=== PATIENT | male | born 1955 | race Caucasian/White ===

== ENCOUNTER → 2017-10-08 | Outpatient (CLI) | payer BC ==
--- NOTE | 2017-10-08 14:12 | DIAGNOSTIC IMAGING REPORT ---
MRI OF THE LUMBAR SPINE WITHOUT CONTRAST CLINICAL HISTORY: Low back pain. Left leg pain. COMPARISON STUDY: Lumbar spine MRI July 23, 2014. TECHNIQUE: Utilizing a 1.5 Karen magnet and dedicated coil, multiplanar, multiecho imaging of the lumbar spine was performed without IV contrast. FINDINGS: For purposes of numbering on this exam, the L5-S1 disc space is assigned to axial image 27 of 30. The patient is status post L3-L4 discectomy with interbody spacer placement. There is a posterior decompression with bilateral pedicle screws at the L3 and L4 levels. The postoperative appearance is unchanged since MRI July 23, 2014. Slight anterolisthesis of L4 and L5 has developed. There is no intracanalicular mass or fluid collection. Conus terminates at the mid L1 level. There is no suspicious marrow replacement or marrow edema. Paravertebral soft tissues are unremarkable. L1-2: The central canal and neural foramen are patent. L2-3: There is facet arthrosis and ligamentous hypertrophy. The central canal, lateral recesses and neural foramen are patent. L3-4: Postoperative findings are noted. The central canal and lateral recesses are patent as is the left neural foramen. There is mild narrowing of the right neural foramen. L4-5: There is facet arthrosis with ligamentous hypertrophy. There is a disc bulge with a superimposed left foraminal/far left lateral disc protrusion which has increased in size since exam of July 23, 2014. There is mass effect upon the exiting left L4 nerve root. This displaces the nerve root. L5-S1: A central annular tear is noted with small central disc protrusion. The central canal and neural foramen are patent. IMPRESSION: 1. Disc bulge with superimposed left foraminal/far left lateral disc protrusion at L4-L5 which has mass effect upon the exiting left L4 nerve root and has increased in size since exam July 23, 2014. This could be correlated with left L4 radiculopathy. 2. Status post L3-L4 discectomy and bilateral pedicle screw fusion. 3. No significant central canal stenosis. 4. Annular tear with small central disc protrusion at L5-S1. Electronically signed by: Fredy Lira M.D. 10/08/2017 2:11 PM Dictated Date/Time: 10/08/2017 1:46 PM
== END | disposition home or self-care (01) ==
LOC: C.MRIBC 12:54
PROVIDERS: ATTEND Orthopaedic Surgery Sports Medicine
DX: M54.5 Low back pain (principal); M79.605 Pain in left leg

== ENCOUNTER 2019-09-20 11:06 | Observation (INO) ==
--- OUTSIDE RECORDS SUMMARY | 2019-09-20 11:08 | External Medical Summary | Continuity of Care Document ---
:1955 Author Name Don Solorio, Provider Address Unavailable Unavailable , Care Team Providers Name Role Phone CecilyG Osmin, Provider Unavailable [email or web address] GINNY Solorio, T Unavailable Unavailable Unavailable Unavailable Unavailable Problems Shortness of breath (786.05) (R06.02) Cough (786.2) (R05) Laryngopharyngeal reflux (478.79) (K21.9) HOCM (hypertrophic obstructive cardiomyopathy) (425.11) (I42 .1) Allergies and Adverse Reactions No Known Drug Allergies (Allergy) Medications Clarithromycin ER 500 MG Oral Tablet Ext ended Release 24 Hour; TAKE TWO TABLETS BY MOUTH EVERY DAY FOR 14 DAYS Osmin Fish Start: 26-Oct-2014 Quantity: 28 Refills: 2 Fluticasone Propionate 50 MCG/ACT Nasal Suspension; USE 2 SPRAYS IN EACH NOSTRIL ONCE DAILY Start: 23-Jul-2014 Quantity: 1 16 GM Bottle Refills: 1 Omeprazole 40 MG Oral Capsule Delayed Release; TAKE 1 CAPSULE TWICE DAILY. Osmin Fish Start: 17-Aug-2014 Quantity: 60 Refills: 3 Lipitor 20 MG Oral Tablet; TAKE 1 TABLET DAILY. Quantity: 90 Refills: 3 HYDROcodone-Homatropine 5-1.5 MG/5ML Ora l Syrup; Take 1 teaspoonful every 6 hours as needed Start: 23-Jul-2014 Refills: 0 Procedures Procedures not documented Immunizations Influenza On: 10-Jun-2015 Lot #: [id number], Influenza On: 16-May-2016 11:07 Lot #: [id number], [employer] Family History Mother No pertinent family history (V49.89) (Z78.9) Status: Active Social History - Smoking Status Current some day smoker Plan of Treatment Planned Observations Planned Goals not documented Results No Known Results Results not documented Encounters Appointment; [facility], Nursing Station 24-May-2018 9:00 Encounter Diagnosis: Problem not documented Appointment; [facility], Nursing Station 22-May-2018 9:15 Encounter Diagnosis: Problem not documented
--- OUTSIDE RECORDS SUMMARY | 2019-09-20 11:09 | External Medical Summary | Continuity of Care Document ---
:1955 Author Name Don Solorio, Provider Address Unavailable Unavailable , Care Team Providers Name Role Phone NonMCELESTINAG Osmin, Provider Unavailable [email or web address] GINNY Solorio, T Unavailable Unavailable Unavailable Unavailable Unavailable Problems Shortness of breath (786.05) (R06.02) Cough (786.2) (R05) Laryngopharyngeal reflux (478.79) (K21.9) HOCM (hypertrophic obstructive cardiomyopathy) (425.11) (I42 .1) Allergies and Adverse Reactions No Known Drug Allergies (Allergy) Medications Lipitor 20 MG Oral Tablet; TAKE 1 TABLET DAILY. Quantity: 90 Refills: 3 Fluticasone Propionate 50 MCG/ACT Nasal Suspension; USE 2 SPRAYS IN EACH NOSTRIL ONCE DAILY Start: 23-Jul-2014 Quantity: 1 16 GM Bottle Refills: 1 HYDROcodone-Homatropine 5-1.5 MG/5ML Ora l Syrup; Take 1 teaspoonful every 6 hours as needed Start: 23-Jul-2014 Refills: 0 Omeprazole 40 MG Oral Capsule Delayed Release; TAKE 1 CAPSULE TWICE DAILY. Osmin Fish Start: 17-Aug-2014 Quantity: 60 Refills: 3 Clarithromycin ER 500 MG Oral Tablet Ext ended Release 24 Hour; TAKE TWO TABLETS BY MOUTH EVERY DAY FOR 14 DAYS Osmin Fish Start: 26-Oct-2014 Quantity: 28 Refills: 2 Procedures Procedures not documented Immunizations Influenza On: 10-Jun-2015 Lot #: [id number], Influenza On: 16-May-2016 11:07 Lot #: [id number], [employer] Family History Mother No pertinent family history (V49.89) (Z78.9) Status: Active Social History - Smoking Status Current some day smoker Plan of Treatment Planned Observations Planned Goals not documented Results No Known Results Results not documented Encounters Appointment; [facility], Nursing Station 24-May-2018 9:00 Encounter Diagnosis: Problem not documented Appointment; [facility], Nursing Station 22-May-2018 9:15 Encounter Diagnosis: Problem not documented
[2019-09-20] MEDS ORDERED: ASPIRIN CHEW 324 MG PO STA (11:40)
[2019-09-20] MEDS ORDERED: NITROGLYCERIN SL 0.4 MG/TAB TAB SL PRN (11:40)
[2019-09-20] MEDS ORDERED: ONDANSETRON INJ 2 MG/ML 2 ML VIAL IV STA (11:40)
[2019-09-20] MEDS ORDERED: ACETAMINOPHEN 325 MG TAB PO STA (11:40)
[2019-09-20 11:55] LABS: Basophils # (auto) 0.01 K/uL (0-0.2); Basophils % (auto) 0.3 %; Eosinophils # (auto) 0.08 K/uL (0-0.5); Eosinophils % (auto) 2.1 %; Hematocrit (blood only) 42.1 % (42-52); Hemoglobin 14.5 g/dL (14.0-18.0); Immature Granulocytes # (auto) 0.01 K/uL (0.00-0.02); Immature Granulocytes % (auto) 0.3 %; Lymphocytes # (auto) 1.59 K/uL (1.2-3.4); Lymphocytes % (auto) 42.5 %; Mean Corpuscular Hemoglobin 32.9 pg (25-34); Mean Corpuscular Hgb Conc 34.4 g/dL (32-36); Mean Corpuscular Volume 95.5 fL (80-100); Mean Platelet Volume 10.7 fL (7.4-10.4); Monocytes # (auto) 0.44 K/uL (0.11-0.59); Monocytes % (auto) 11.8 %; Neutrophils # (auto) 1.61 K/uL (1.4-6.5); Platelet Count 227 K/uL (130-400); RDW Coefficient of Variation 13.2 % (11.5-14.5); RDW Standard Deviation 46.2 fL (36.4-46.3); Red Blood Count 4.41 M/uL (4.7-6.1); White Blood Count 3.74 K/uL (4.8-10.8)
[2019-09-20 12:02] LABS: Albumin Level 3.8 gm/dl (3.4-5.0); BUN Creatinine Ratio 15.6 (10-20); Calcium 9.2 mg/dl (8.5-10.1); Creatinine Clr Calc Pharmacy 129.2 ml/min; Est GFR (African American) 109.8; Est GFR (Non-African American) 94.8; Potassium 4.1 mmol/L (3.5-5.1)
[2019-09-20 12:07] LABS: INR 1.1 (0.9-1.1); Partial Thromboplastin Ratio 0.9; Partial Thromboplastin Time 25.4 Seconds (21.0-31.0)
[2019-09-20 12:13] LABS: Albumin Globulin Ratio 1.1 (0.9-2); Bilirubin,Total 0.7 mg/dl (0.2-1); Globulin 3.4 gm/dl (2.5-4.0); Total Protein 7.2 gm/dl (6.4-8.2); Troponin I 0.385 ng/ml (0-0.045)
[2019-09-20] MEDS ORDERED: Heparin IV Standard *NO* Bolus IV ONE (12:18)
--- NOTE | 2019-09-20 12:23 | XRay Report ---
XR chest 1V portable HISTORY: Atypical Chest Pain COMPARISON: Chest 08/17/2014. FINDINGS: Stable calcified granuloma within the left lung base. Otherwise, lungs are clear. Cervical spinal fusion hardware is noted. No pleural effusions. No pneumothorax. The cardiac silhouette is bor derline enlarged. IMPRESSION: Borderline enlargement of the cardiac silhouette. Otherwise, no acute process within the chest. ACT 112: Negative or not required by law. Electronically signed by: Everette Marroquin M.D. 09/20/2019 12:22 PM
[2019-09-20] MEDS ORDERED: SODIUM CHLORIDE 0.9% 1000ML 1,000 ML IV SCH (12:30)
[2019-09-20] MEDS ORDERED: HEPARIN SODIUM/DEXTROSE 25,000 UNITS/500 ML BAG IV SCH (12:30)
--- NOTE | 2019-09-20 13:34 | History & Physical Report ---
Date of Service September 20, 2019 Assessment & Plan (1) Exertional dyspnea: 63yo C male with history of hypertrophic cardiomyopathy presenting with 10 days of exertional lightheadedness and dyspnea. No CP. No symptoms occurring at rest. Presently afebrile, hemodynamically stable with a resting bradycardia. Troponin x 1 elevated at 0.385, EKG with no evidence of acute ischemia. He reports having a cardiac catheterization performed in [place] last year - states he had 40% stenosis of LAD. He reports this is unchanged from a catheterization performed 13 years prior. -Observation to medical floor with telemetry -Repeat troponin x 1 in 8 hours. If level is the same or decreased will discharge the patient home, if level is increased he should stay for additional ischemic workup -Records from outside Cardiology requested. -Continue ASA 81mg po daily -Continue Atorvastatin 80mg po daily + Coq10 -Continue Lisinopril 5mg po daily -No Beta evelyne due to resting bradycardia -Nitroglycerine PRN chest pain -Zofran as needed for nausea -Cardiology consultation appreciated Present on Admission?: Yes (2) Elevated troponin: Troponin = 0.385. Uncertain baseline values -Repeat in 8 hours as above -Cardiology consultation appreciated Present on Admission?: Yes (3) Cardiomyopathy: Patient with history of hypertrophic cardiomyopathy. He receives his cardiac care in [place] at the [facility]. -Records requested -Consider repeat echocardiogram here F/E/N - Heplock. Electrolytes WNL, check Mg level x 1, NPO for now, hold vitamins/supplements for now Ppx - Low risk for DVT Code - Full per discussion with patient Dispo -Observation to medical floor with telemetry Present on Admission?: Yes History of Present Illness Chief Complaint: SR Primary Care Provider: Luther HUERTAS Patient is a pleasant 63yo C male with history of hypertrophic cardiomyopathy, follows predominantly with Cardiology at the [facility] in [place], [place]. He presents today with his complaining of 10 days of indigestion and eructation as well as lightheadedness and dyspnea with exertion, occasional palpitations. He denies chest pain or pressure, SOB, edema, orthopnea. He was ill with a URI a few months ago and continues to have a dry cough with some post nasal drip. Otherwise, no complaints. ER Course: ASA 324mg, Tylenol 650mg, Zofran 4mgIV, Nitro 0.4mg Allergies Allergy/AdvReac Type Severity Reaction Status Date / Time No Known Allergies Allergy Unverified 09/20/19 13:43 Home Medications Home Medications Medication Instructions Recorded Confirmed Type aspirin 81 mg PO QAM 09/20/19 09/20/19 History atorvastatin 80 mg PO HS 09/20/19 09/20/19 History cholecalciferol (vitamin D3) 2,000 unit PO QAM 09/20/19 09/20/19 History [Vitamin D3] coenzyme Q10 [Co Q-10] 100 mg PO QAM 09/20/19 09/20/19 History lisinopril 5 mg PO HS 09/20/19 09/20/19 History multivitamin 1 tab PO QAM 09/20/19 09/20/19 History omega 2-pdb-vyb-fish oil [Fish Oil] 1 cap PO QAM 09/20/19 09/20/19 History sildenafil 100 mg PO DAILY PRN 09/20/19 09/20/19 History turmeric 400 mg PO QAM 09/20/19 09/20/19 History Past Med/Surg History Medical History (Updated 09/20/19 @ 13:58 by Radha Alvarado DO) Cardiomyopathy Surgical History (Updated 09/20/19 @ 13:53 by Radha Alvarado DO) History of cervical spinal surgery History of lumbosacral spine surgery S/P cardiac catheterization Family History Mother Atrial fibrillation Brother Atrial fibrillation Father Myocardial infarction Social History (Updated 09/20/19 @ 13:53 by Radha Alvarado DO) Preferred Language: Norwegian marital status: current occupational status: employed Feels Safe at Home: Yes Smoking Status: Never smoker Hx Alcohol Use: Yes Alcohol Intake Frequency: Holidays/Special Occasions Hx Substance Use: No Review of Systems Review of Systems: All systems reviewed & are unremarkable except as noted in HPI & below Physical Exam Physical Exam: General: patient resting comfortably, NAD, non-toxic in appearance, AA&O x 4 Skin: warm, dry, intact, no rashes or lesions HEENT: NC/AT, PERRL, EOMI, anicteric sclera, conjunctiva without injection, external ear normal to inspection and nontender, nares patent, moist mucus membranes, dentition intact, no oropharyngeal lesions, neck supple, trachea midline, no LAD, no thyromegaly, no JVD Heart: +S1/S2, regular, bradycardic, no m/r/g Lungs: equal air entry bilaterally, no rales/rhonchi/wheezes Abd: +BS, soft, NT/ND, no masses/organomegaly/ascites Ext: warm, 2+ pulses in UE/LE bilaterally, no clubbing/cyanosis or edema Neuro: nonfocal, patient AA&O x 4, speech intact, no facial droop, moving all extremities on command with equal strength 5/5 Results & Data Vital Signs (Past 12 Hours) Vital Signs Temp Pulse Resp BP Pulse Ox 09/20/19 12:05 48 L 16 119/67 95 09/20/19 12:00 62 15 107/75 94 09/20/19 11:55 61 19 117/74 92 09/20/19 11:52 55 L 13 139/81 96 09/20/19 11:43 97 09/20/19 11:30 50 L 19 136/81 96 09/20/19 11:27 52 L 19 146/85 H 96 09/20/19 11:11 56 L 20 177/91 H 97 09/20/19 11:07 36.4 C L 61 20 192/87 H 99 Laboratory Results Lab Results 09/20/19 09/20/19 09/20/19 Range/Units 11:18 11:18 11:18 WBC 3.74 L (4.8-10.8) K/uL RBC 4.41 L (4.7-6.1) M/uL Hgb 14.5 (14.0-18.0) g/dL Hct 42.1 (42-52) % MCV 95.5 (80-100) fL MCH 32.9 (25-34) pg MCHC 34.4 (32-36) g/dL RDW Std Deviation 46.2 (36.4-46.3) fL RDW Coeff of Mateus 13.2 (11.5-14.5) % Plt Count 227 (130-400) K/uL MPV 10.7 H (7.4-10.4) fL Immature Gran % (Auto) 0.3 % Neut % (Auto) 43.0 % Lymph % (Auto) 42.5 % [place] % (Auto) 11.8 % Eos % (Auto) 2.1 % Baso % (Auto) 0.3 % Immature Gran # (Auto) 0.01 (0.00-0.02) K/uL Neut # (Auto) 1.61 (1.4-6.5) K/uL Lymph # (Auto) 1.59 (1.2-3.4) K/uL [place] # (Auto) 0.44 (0.11-0.59) K/uL Eos # (Auto) 0.08 (0-0.5) K/uL Baso # (Auto) 0.01 (0-0.2) K/uL PT 11.0 (9.0-12.0) Seconds INR 1.1 (0.9-1.1) APTT 25.4 (21.0-31.0) Seconds PTT Ratio 0.9 Sodium 139 (136-145) mmol/L Potassium 4.1 (3.5-5.1) mmol/L Chloride 107 (98-107) mmol/L Carbon Dioxide 26 (21-32) mmol/L Anion Gap 6.0 (3-11) BUN 13 (7-18) mg/dl Creatinine 0.82 (0.6-1.4) mg/dl Est Cr Clr Drug Dosing 129.2 ml/min Est GFR ( Amer) 109.8 Est GFR (Non-Af Amer) 94.8 BUN/Creatinine Ratio 15.6 (10-20) Glucose 104 H (70-99) mg/dl Calcium 9.2 (8.5-10.1) mg/dl Total Bilirubin 0.7 (0.2-1) mg/dl AST 31 (15-37) U/L ALT 42 (12-78) U/L Alkaline Phosphatase 50 (45-117) U/L Troponin I 0.385 H* (0-0.045) ng/ml Total Protein 7.2 (6.4-8.2) gm/dl Albumin 3.8 (3.4-5.0) gm/dl Globulin 3.4 (2.5-4.0) gm/dl Albumin/Globulin Ratio 1.1 (0.9-2) Lipase 123 (73-393) U/L Diagnostic Findings XR chest 1V portable HISTORY: Atypical Chest Pain COMPARISON: Chest 08/17/2014. FINDINGS: Stable calcified granuloma within the left lung base. Otherwise, lungs are clear. Cervical spinal fusion hardware is noted. No pleural effusions. No pneumothorax. The cardiac silhouette is borderline enlarged. IMPRESSION: Borderline enlargement of the cardiac silhouette. Otherwise, no acute process within the chest. ACT 112: Negative or not required by law. Electronically signed by: Everette Marroquin M.D. 09/20/2019 12:22 PM Dictated: 09/20/19 1220 Transcribed: 09/20/19 1220 ECG Additional Comments: The study shows sinus bradycardia at 57bpm, GU=252, BRX=687, SCf=710, LVH with repolarization abnormalities, no acute ischemic changes Code Status & VTE Plan Code Status FULL PG Care Time/CCT Total # of Minutes Spent Total Time Spent with Patient: Total time spent is greater than 50% in coordination of care (as documented) at patient's floor/unit and/or counseling patient: Coding Level of Care Code 28242 OBS Care - Level 2 Diagnoses Exertional dyspnea R06.09 Elevated troponin R79.89 Cardiomyopathy I42.8 Cardiomyopathy type: other (1) Cardiomyopathy Cardiomyopathy type: other Qualified Code(s): I42.8 - Other cardiomyopathies
--- NOTE | 2019-09-20 15:48 | Emergency Department Note ---
Entered by Blanca Lerma acting as a scribe for History of Present Illness General Chief complaint: Illness Stated complaint: ILLNESS Time Seen by Provider: 09/20/19 11:20 Source: patient and family () Mode of arrival: ambulatory Limitations: no limitations History of Present Illness Provider complaint: Shortness of breath Onset (ago): day(s) 10 Location: chest Pain Consistency: + other (worsening) Maximum Pain Intensity: 5 Quality: + other (shortness of breath) Exacerbated By: + other (exertion) Associated symptoms: + cough, + nausea/vomiting and + other (Additional symptoms: indigestion, lightheadedness. Denies: leg swelling, urinary symptoms, abnormal bowel movements); no chest pain, no diaphoresis and no loss of appetite Treatments prior to arrival: none The patient is a 63 year old white male w/ PMHx of GERD, CAD, and hypertrophic cardiomyopathy who presents to the ED w/ CC of worsening shortness of breath beginning 10 days ago. The patient reports that his shortness of breath worsens with exertion and has been accompanied by indigestion. He states that he feels like he has a "bubble" in his chest that causes him to become lightheaded and nauseous. He adds that he has had a cough since , but he denies any chest pain, leg swelling, loss of appetite, urinary symptoms, abnormal bowel movements, and diaphoresis. He also recalls no recent surgeries and travel. The patient reports that he has had [address] [facility] in [place] but has no history of DVTs and PEs. He mentions that his father had a heart attack before the age of 65 and that his mother and brother have histories of atrial fibrillation. Home Medications Home Medications Medication Instructions Recorded Confirmed Type aspirin 81 mg PO [facility] 09/20/19 09/20/19 History atorvastatin 80 mg PO 09/20/19 09/20/19 History cholecalciferol (vitamin D3) 2,000 unit PO [facility] 09/20/19 09/20/19 History [Vitamin D3] coenzyme Q10 [Co Q-10] 100 mg PO [facility] 09/20/19 09/20/19 History lisinopril 5 mg PO 09/20/19 09/20/19 History multivitamin 1 tab PO [facility] 09/20/19 09/20/19 History omega 3-her-api-fish oil [Fish Oil] 1 cap PO QAM 09/20/19 09/20/19 History sildenafil 100 mg PO DAILY PRN 09/20/19 09/20/19 History turmeric 400 mg PO QAM 09/20/19 09/20/19 History Allergies Allergy/AdvReac Type Severity Reaction Status Date / Time No Known Allergies Allergy Unverified 09/20/19 13:43 Past Med/Surg History Medical History CAD (coronary artery disease) Hypertrophic cardiomyopathy Systolic anterior movement of mitral valve Surgical History (Updated 09/20/19 @ 13:53 by Radha Alvarado DO) History of cervical spinal surgery History of lumbosacral spine surgery S/P cardiac catheterization Family History Mother Atrial fibrillation Brother Atrial fibrillation Father Myocardial infarction Social History (Updated 09/20/19 @ 13:53 by Radha Alvarado DO) Preferred Language: Niuean Communication Ability: Effective Beliefs That Will Affect Care: None marital status: Current Living Situation: Spouse current occupational status: employed Feels Safe at Home: Yes Smoking Status: Current some day smoker Tobacco Type: cigars ; Hx Alcohol Use: Yes Alcohol type: beer and wine Alcohol Intake Frequency: Holidays/Special Occasions Hx Substance Use: No Review of Systems See HPI for pertinent positives & negatives. and A total of 10 systems reviewed and were otherwise negative Physical Exam Vital Signs Vital Signs - 24 hr 09/20/19 11:07 09/20/19 11:11 09/20/19 11:27 Temperature 36.4 C L Temperature Source Oral Pulse Rate 61 56 L 52 L Pulse Rate from SpO2 Sensor 58 L 53 L Respiratory Rate 20 20 19 Respiratory Effort / Characteristics Non-Labored Spontaneous Respiratory Depth Normal Respiratory Pattern Regular Blood Pressure 192/87 H 177/91 H 146/85 H Blood Pressure Mean 122 119 98 Pulse Oximetry 99 97 96 Oxygen Delivery Method Room Air Sepsis Recent Fever Within 48 Hours No Sepsis Action Taken by Nursing No Action Required 09/20/19 11:30 09/20/19 11:43 09/20/19 11:52 Temperature Temperature Source Pulse Rate 50 L 55 L Pulse Rate from SpO2 Sensor 52 L 54 L Respiratory Rate 19 13 Respiratory Effort / Characteristics Respiratory Depth Respiratory Pattern Blood Pressure 136/81 139/81 Blood Pressure Mean 97 98 Pulse Oximetry 96 97 96 Oxygen Delivery Method Room Air Sepsis Recent Fever Within 48 Hours Sepsis Action Taken by Nursing 09/20/19 11:55 09/20/19 12:00 09/20/19 12:05 Temperature Temperature Source Pulse Rate 61 62 48 L Pulse Rate from SpO2 Sensor 61 61 51 L Respiratory Rate 19 15 16 Respiratory Effort / Characteristics Respiratory Depth Respiratory Pattern Blood Pressure 117/74 107/75 119/67 Blood Pressure Mean 81 85 77 Pulse Oximetry 92 94 95 Oxygen Delivery Method Sepsis Recent Fever Within 48 Hours Sepsis Action Taken by Nursing 09/20/19 12:07 09/20/19 12:31 09/20/19 13:01 Temperature Temperature Source Pulse Rate 57 L 53 L 45 L Pulse Rate from SpO2 Sensor 57 L 52 L 45 L Respiratory Rate 13 26 H 17 Respiratory Effort / Characteristics Respiratory Depth Respiratory Pattern Blood Pressure 116/72 139/67 124/74 Blood Pressure Mean 77 79 87 Pulse Oximetry 93 97 97 Oxygen Delivery Method Sepsis Recent Fever Within 48 Hours Sepsis Action Taken by Nursing GENERAL: Well appearing, well nourished, NAD, non-toxic, wearing glasses. EYE EXAM: Normal conjunctiva. PERRL, no anisocoria and EOM's grossly intact w/o pain. OROPHARYNX: Moist mucous membranes. Grossly normal dentition. NECK: Supple, no nuchal rigidity, no adenopathy, non-tender. No signs of meningismus. LUNGS: Clear to auscultation. Normal chest wall mechanics. HEART: NSR, no MRG. CHEST: No reproducible chest wall pain. ABDOMEN: Abdomen soft, non-tender, normo-active bowel sounds, no masses, no rebound or guarding. BACK: No CVA TTP. SKIN: No rashes and no bruising. UPPER EXTREMITIES: Upper extremities are grossly normal. LOWER EXTREMITIES: No pitting edema. No calf pain. Negative Phani's sign. NEURO EXAM: A&O x3, cranial nerves II-XII grossly intact, normal speech, moves all 4 extremities on command w/o issue. Course Course 1134: The patient was evaluated in room A10, and a complete history and physical examination were performed. 1136: Orders were placed. The patient was placed on a personnel monitor at this time. 1216: I reviewed the patient's case with Dr. Chowdhury - Cardiology, [facility]. 1225: I checked on the patient. The patient stated that he does not want to be admitted, so we talked about the risks and benefits of discharge. 1251: I reevaluated the patient and updated him and his on his results. 1301: I spoke to Dr. Chowdhury again and he will come to evaluate the patient. I also reviewed the patient's case with [facility]. Alvarado will admit the patient for observation and further management. 1353: The patient refused the heparin at this time. 1511: I discussed the patient's case with Dr. Chowdhury after he evaluated the patient at the bedside. Consultations Consultation #1: I reviewed the patient's case with Dr. Chowdhury - Cardiology, [facility]. Time: 12:16 Consultation #2: I spoke to Dr. Chowdhury again and he will come to evaluate the patient. I also reviewed the patient's case with Dr. Alvarado - [facility]. Dr. Alvarado will admit the patient for observation and further management. Time: 13:01 Time: 15:11 Additional Consultation(s): I discussed the patient's case with Dr. Chowdhury after he evaluated the patient at the bedside. Administered Medications Discontinued Medications Acetaminophen (Tylenol) 650 mg PO NOW STA Stop: 09/20/19 11:41 Last Admin: 09/20/19 11:49 Dose: 650 mg Documented by: [id number] Aspirin (Aspirin) 324 mg PO NOW STA Stop: 09/20/19 11:41 Last Admin: 09/20/19 11:50 Dose: 324 mg Documented by: [id number] Heparin Sodium/Dextrose () 1 ea IV ONE ONE; Protocol Stop: 09/20/19 12:19 Last Admin: 09/20/19 13:56 Dose: Not Given Documented by: [id number] Heparin Sodium/Dextrose (Heparin Sodium/Dextrose) 25,000 units in 500 mls @ 0.02 mls/hr IV .Q24H CHERELLE; Protocol Stop: 10/20/19 12:29 Last Admin: 09/20/19 13:56 Dose: Not Given Documented by: [id number] Sodium Chloride (Nss 1000ml) 1,000 mls @ 125 mls/hr IV .Q8H CHERELLE Stop: 10/20/19 12:29 Last Admin: 09/20/19 15:55 Dose: Not Given Documented by: [id number] Nitroglycerin (Nitrostat) 0.4 mg SL UD PRN PRN Reason: Chest Pain Stop: 10/20/19 11:39 Last Admin: 09/20/19 11:49 Dose: 0.4 mg Documented by: [id number] Ondansetron HCl (Zofran) 4 mg IV NOW STA Stop: 09/20/19 11:41 Last Admin: 09/20/19 11:49 Dose: 4 mg Documented by: [id number] Medical Decision Making Differential Diagnosis Differential diagnosis includes: cardiac ischemia, aortic dissection, pulmonary embolism, pneumonia, pneumothorax, musculoskeletal, infections, pericarditis, myocarditis, esophageal rupture, gastrointestinal, as well as others were entertained. Medical Records Attestation: I reviewed the patient's medical records. Home Medications Current Medication List: was personally reviewed by me Laboratory Data Attestation: I reviewed the patient's lab results. Result diagrams: 09/20/19 11:18 09/20/19 11:18 Lab Results 09/20/19 09/20/19 09/20/19 Range/Units 11:18 11:18 11:18 WBC 3.74 L (4.8-10.8) K/uL RBC 4.41 L (4.7-6.1) M/uL Hgb 14.5 (14.0-18.0) g/dL Hct 42.1 (42-52) % MCV 95.5 (80-100) fL MCH 32.9 (25-34) pg MCHC 34.4 (32-36) g/dL RDW Std Deviation 46.2 (36.4-46.3) fL RDW Coeff of Mateus 13.2 (11.5-14.5) % Plt Count 227 (130-400) K/uL MPV 10.7 H (7.4-10.4) fL Immature Gran % (Auto) 0.3 % Neut % (Auto) 43.0 % Lymph % (Auto) 42.5 % [place] % (Auto) 11.8 % Eos % (Auto) 2.1 % Baso % (Auto) 0.3 % Immature Gran # (Auto) 0.01 (0.00-0.02) K/uL Neut # (Auto) 1.61 (1.4-6.5) K/uL Lymph # (Auto) 1.59 (1.2-3.4) K/uL [place] # (Auto) 0.44 (0.11-0.59) K/uL Eos # (Auto) 0.08 (0-0.5) K/uL Baso # (Auto) 0.01 (0-0.2) K/uL PT 11.0 (9.0-12.0) Seconds INR 1.1 (0.9-1.1) APTT 25.4 (21.0-31.0) Seconds PTT Ratio 0.9 Sodium 139 (136-145) mmol/L Potassium 4.1 (3.5-5.1) mmol/L Chloride 107 (98-107) mmol/L Carbon Dioxide 26 (21-32) mmol/L Anion Gap 6.0 (3-11) BUN 13 (7-18) mg/dl Creatinine 0.82 (0.6-1.4) mg/dl Est Cr Clr Drug Dosing 129.2 ml/min Est GFR ( Amer) 109.8 Est GFR (Non-Af Amer) 94.8 BUN/Creatinine Ratio 15.6 (10-20) Glucose 104 H (70-99) mg/dl Calcium 9.2 (8.5-10.1) mg/dl Total Bilirubin 0.7 (0.2-1) mg/dl AST 31 (15-37) U/L ALT 42 (12-78) U/L Alkaline Phosphatase 50 (45-117) U/L Troponin I 0.385 H* (0-0.045) ng/ml Total Protein 7.2 (6.4-8.2) gm/dl Albumin 3.8 (3.4-5.0) gm/dl Globulin 3.4 (2.5-4.0) gm/dl Albumin/Globulin Ratio 1.1 (0.9-2) Lipase 123 (73-393) U/L Imaging Data Radiologist's Impression: Radiology results as stated below per my review and the radiologist's interpretation: XR chest 1V portable HISTORY: Atypical Chest Pain COMPARISON: Chest 08/17/2014. FINDINGS: Stable calcified granuloma within the left lung base. Otherwise, lungs are clear. Cervical spinal fusion hardware is noted. No pleural effusions. No pneumothorax. The cardiac silhouette is borderline enlarged. IMPRESSION: Borderline enlargement of the cardiac silhouette. Otherwise, no acute process within the chest. ACT 112: Negative or not required by law. Electronically signed by: Everette Marroquin M.D. 09/20/2019 12:22 PM ECG Data Attestation: I personally reviewed and interpreted this ECG as follows: Indication: + chest pain Rate (beats per minute): 57 Rhythm: + sinus bradycardia ECG Intervals/blocks: + Normal QRS, + Normal QT and + Normal [place] ECG Bee: + Normal ECG ST segments: + T-wave inversions (diffuse TWI anteriorly and laterally, no longer has TWI in lead II) Comparison ECG Date: from (05/04/09) Change: the following changes noted (TWI in lateral leads appear improved compared to old) Blood Pressure Blood Pressure Findings: Elevated blood pressure Blood Pressure Disposition: further management by hospitalist MDM Narrative The patient is a 63 year old white male w/ PMHx CAD, hypertrophic cardiomyopathy, and GERD who presents to the ED w/ CC of worsening shortness of breath beginning 10 days ago. Patient was seen and evaluated the bedside. The patient was presenting with some exertional dyspnea and associated nausea. The patient does have a history of nonobstructive CAD status post cath at the [facility] in [place]. The patient states he also had a cardiac MRI and was diagnosed with hypertrophic cardiomyopathy. Patient dates he has had some shortness of breath but is only been with exertion. He has had decreased exercise tolerance. The patient only has complaints of some upset stomach and indigestion while at rest. The patient was given nitro which mildly improved his symptoms. The patient did have positive troponin but without any large EKG changes as the patient does have diffuse T wave inversions throughout. This appears fairly unchanged compared to prior. Given the patient's troponin as well as the EKG I believe it would be of benefit for him to stay in the hospital. Heparin was ordered but the patient refused at this time. The patient does not again complain of active chest pain. I did speak with the on-call hospitalist as well as with the patient as well as the on-call gas load dispatcher who was kind enough to see the patient at the bedside in the emergency department. The gas load dispatcher did order an echo. The patient had already been given a full dose aspirin the patient was admitted for serial troponins. Impression & Plan Exertional dyspnea, Elevated troponin, History of hypertrophic cardiomyopathy Discharge Plan Visit Data *Final* Discharge Date/Time: 09/20/19 14:44 Chief Complaint: Illness Stated Complaint: ILLNESS ED Provider: Judah Pompa Discharge Problem: Exertional dyspnea, Elevated troponin, History of hypertrophic cardiomyopathy Patient Disposition: Admitted As Inpatient Discharge Instructions Interventions: ED Discharge Assessment Last Done: 09/20/19 14:44 The scribe's documentation has been prepared under my direction and personally reviewed by me in its entirety. I confirm that the note above accurately reflects all work, treatment, procedures, and medical decision making performed by me.
[2019-09-20] MEDS ORDERED: ONDANSETRON INJ 2 MG/ML 2 ML VIAL IV PRN (15:53)
--- NOTE | 2019-09-20 16:01 | Cardiology Consultation ---
Date of Consultation September 20, 2019 Assessment & Plan (1) Elevated troponin: (2) Hypertrophic cardiomyopathy: (3) Systolic anterior movement of mitral valve: (4) Lightheadedness: (5) CAD (coronary artery disease): ASSESSMENT/PLAN: 1. Exertional lightheadedness: This could be related to hypertrophic cardiomyopathy as he does have evidence based on MRI findings of systolic anterior motion of the mitral leaflet. If he is having transient obstruction during exercise, this could cause symptoms. Currently, no lightheadedness. Recommend echocardiogram. Recommend discontinuation of lisinopril for now to increase preload. Recommend increasing hydration. Consider 500 mL of normal saline over a few hours after echocardiogram is performed. 2. Elevated troponin: No Angina, but does have constant nausea currently. Troponin may be elevated due to his history of hypertrophic cardiomyopathy, which can often have chronic low-level troponin elevation. Recommend repeating troponin 6 hours after initial to ensure no significant trend upward. Recommend echocardiogram to evaluate for focal wall motion abnormality and also dynamic obstruction. Presentation is not highly concerning for acute coronary syndrome and therefore heparin drip is not necessary at this time, and he has already declined heparin. 3. Hypertrophic cardiomyopathy: Followed by [facility] in [place]. Recommend echocardiogram. Recommend echo images be placed on a disc so that he can take it to his maintenance millwright on follow-up. Given exertional symptoms, recommend discontinuing lisinopril for now to allow for increased preload. Recommend hydration as noted above. Recommend exercise stress echo as an outpatient to evaluate for blood pressure response to exercise, arrhythmia with exercise, and to see if he develops a gradient with exercise. Recommend outpatient monitoring for arrhythmia. With resting heart rates in the 40s, beta-evelyne not initiated. 4. Nonobstructive CAD: No angina. Cardiac catheterization performed 1 year ago per his report. Continue aspirin, high-intensity statin therapy. 5. Systolic anterior motion of mitral leaflet: Echo as above to evaluate for obstruction. 6. Disposition: Recommendations were discussed with Dr. Davies in detail. He plans on following up with his primary maintenance millwright and it was recommended that he do so soon after discharge. He plans on being discharged if his troponin does not become significantly elevated. He preferred to be discharged from the ER however it is recommended that he undergo evaluation as noted above and he was agreeable. Plan care discussed with Dr. Pompa of the Emergency Department, and Dr. Alvarado of the primary hospitalist service. Please call with any other questions or concerns. Thank you for allowing me to participate in the care of your patient. Please call for any other questions or concerns. Sincerely, Murali Chowdhury M.D. History of Present Illness Reason for Consultation: Hypertrophic cardiomyopathy and elevated troponin Requesting Physician: Dr. Pompa and Dr. Alvarado Attending Physician: Dr. Alvarado History of Present Illness Dr. Davies is a pleasant 63-year-old gentleman with a history significant for hypertrophic cardiomyopathy, systolic anterior motion of the mitral leaflet, and nonobstructive CAD. He is followed by [facility] in [place]. He reports undergoing cardiac catheterization on 2 separate occurrences. He had been found in the past to have elevated calcium score in his LAD and cardiac catheterization confirmed a 40% stenosis within the LAD. Approximately 1 year ago, he underwent another cardiac catheterization in [place], with no significant change to the 40% lad stenosis. He also underwent cardiac MRI on 05/03/2018 in [place]. He had a report copy on to his phone which he shared during our visit today. It reported a thickened septum of 20 mm with mild JAE. The LV EF was reported at 67% with normal wall motion. He recalls in the past discussions about ICD placement however that apparently has not been deemed necessary after further evaluation. He came to the emergency department today due to exertional lightheadedness and indigestion/nausea. He recalls having upper respiratory symptoms, described as flu-like symptoms, near the end of July, which lingered for some time. He then improved and 2 weeks ago developed exertional lightheadedness, indigestion in his upper abdomen/epigastric area, and belching. This also coincides with a change in his diet. He begin a diet where he fast, consuming all of his food within an 8 hour window. When asked if he perhaps has not been drinking as much, he states it is possible. He has lost 8 lb with this new diet but the diet does coincide with the onset of his symptoms. He uses an elliptical machine 3 days per week for approximately 60 minutes, up t o 70 minutes. More recently, over the past 2 weeks, he has noted Exertional lightheadedness with exercise. Normal daily activities have not necessarily cause the symptoms but with more strenuous exercise, he has noted this. He denies actual syncope. He denies any chest discomfort. He has not noted any significant breathing difficulty. He denies edema, palpitations, diarrhea, melena, hematochezia, hematuria, or stroke-like symptoms. No fevers. He does feel nauseated now. He reports that his resting heart rate at home is typically 46-48 bpm. His blood pressure at home this morning was 128/65mmHg, but he admits that he did not check his blood pressure during light headed episodes. He recalls having an abnormal ECG chronically with deep T-wave inversions. He had significant palpitations when younger, playing football which she referred to as possible SVT however these have since subsided. He recalls undergoing extensive evaluation at that time. He prefers to be discharged, but his troponin was slightly elevated and he is currently being observed on a hospitalist service. Review of systems: As above. Review of systems otherwise negative/unremark able. Family history: Father at the age of 55 but had reported DE at the age of 45. He is not certain that coronary disease was actually confirmed. His mother had atrial fibrillation and CAD. Brother has atrial fibrillation. Social history: Occasional cigar. Occasional alcohol, with approximately 2 alcoholic beverages per day wore recently. He lives at home with his . They have 4 children. 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 He was alone in the hospital room. Allergies Allergy/AdvReac Type Severity Reaction Status Date / Time No Known Allergies Allergy Unverified 09/20/19 13:43 Home Medications Home Medications Medication Instructions Recorded Confirmed Type aspirin 81 mg PO QAM 09/20/19 09/20/19 History atorvastatin 80 mg PO HS 09/20/19 09/20/19 History cholecalciferol (vitamin D3) 2,000 unit PO QAM 09/20/19 09/20/19 History [Vitamin D3] coenzyme Q10 [Co Q-10] 100 mg PO QAM 09/20/19 09/20/19 History lisinopril 5 mg PO HS 09/20/19 09/20/19 History multivitamin 1 tab PO QAM 09/20/19 09/20/19 History omega 7-qct-dgb-fish oil [Fish Oil] 1 cap PO QAM 09/20/19 09/20/19 History sildenafil 100 mg PO DAILY PRN 09/20/19 09/20/19 History turmeric 400 mg PO QAM 09/20/19 09/20/19 History Patient History Medical History (Updated 09/20/19 @ 15:50 by Pankaj Chowdhury MD) CAD (coronary artery disease) Hypertrophic cardiomyopathy Systolic anterior movement of mitral valve Surgical History (Updated 09/20/19 @ 13:53 by Radha Alvarado DO) History of cervical spinal surgery History of lumbosacral spine surgery S/P cardiac catheterization Family History Mother Atrial fibrillation Brother Atrial fibrillation Father Myocardial infarction Social History (Updated 09/20/19 @ 13:53 by Radha Alvarado DO) Preferred Language: Tunisian marital status: current occupational status: employed Feels Safe at Home: Yes Smoking Status: Never smoker Hx Alcohol Use: Yes Alcohol Intake Frequency: Holidays/Special Occasions Hx Substance Use: No Physical Exam Physical Exam: Gen.: No acute distress. Alert and oriented. HEENT: Anicteric sclera. Neck: No JVD. No bruits. Normal carotid upstrokes bilaterally. Cardiac: PMI was nondisplaced. No ventricular heave. Bradycardic but regular. Normal S1-S2. No audible murmurs, rubs, or gallops. Pulmonary: Clear to auscultation bilaterally without wheezes, rales, or rhonchi. Abdomen: Soft, nontender, nondistended, with normoactive bowel sounds. No bruits noted. Extremities: 2+ radial pulses bilaterally. 2+ posterior tibialis pulses bilaterally. No edema or cyanosis. Psychiatric: Affect appears appropriate. Results & Data Vital Signs (Past 12 Hours) Vital Signs Temp Pulse Resp BP Pulse Ox 09/20/19 14:35 50 L 18 140/80 96 09/20/19 14:30 51 L 14 120/78 94 09/20/19 14:00 52 L 18 127/82 93 09/20/19 13:30 49 L 13 130/75 94 09/20/19 13:01 45 L 17 124/74 97 09/20/19 12:31 53 L 26 H 139/67 97 09/20/19 12:07 57 L 13 116/72 93 09/20/19 12:05 48 L 16 119/67 95 09/20/19 12:00 62 15 107/75 94 09/20/19 11:55 61 19 117/74 92 09/20/19 11:52 55 L 13 139/81 96 09/20/19 11:43 97 09/20/19 11:30 50 L 19 136/81 96 09/20/19 11:27 52 L 19 146/85 H 96 09/20/19 11:11 56 L 20 177/91 H 97 09/20/19 11:07 36.4 C L 61 20 192/87 H 99 Laboratory Results Laboratory Results - last 24 hr 09/20/19 09/20/19 09/20/19 11:18 11:18 11:18 WBC 3.74 L RBC 4.41 L Hgb 14.5 Hct 42.1 MCV 95.5 MCH 32.9 MCHC 34.4 RDW Std Deviation 46.2 RDW Coeff of [place] 13.2 Plt Count 227 MPV 10.7 H Immature Gran % (Auto) 0.3 Neut % (Auto) 43.0 Lymph % (Auto) 42.5 [place] % (Auto) 11.8 Eos % (Auto) 2.1 Baso % (Auto) 0.3 Immature Gran # (Auto) 0.01 Neut # (Auto) 1.61 Lymph # (Auto) 1.59 [place] # (Auto) 0.44 Eos # (Auto) 0.08 Baso # (Auto) 0.01 PT 11.0 INR 1.1 APTT 25.4 PTT Ratio 0.9 Sodium 139 Potassium 4.1 Chloride 107 Carbon Dioxide 26 Anion Gap 6.0 BUN 13 Creatinine 0.82 Est Cr Clr Drug Dosing 129.2 Est GFR ( Amer) 109.8 Est GFR (Non-Af Amer) 94.8 BUN/Creatinine Ratio 15.6 Glucose 104 H Calcium 9.2 Total Bilirubin 0.7 AST 31 ALT 42 Alkaline Phosphatase 50 Troponin I 0.385 H* Total Protein 7.2 Albumin 3.8 Globulin 3.4 Albumin/Globulin Ratio 1.1 Lipase 123 Diagnostic Findings ECG personally Reviewed: ECG 09/20/2019: Sinus bradycardia 57 bpm. LVH with repolarization abnormality. Chest x-ray 09/20/2019: No acute process per Radiology. Cardiac MRI report reviewed as noted above in the HPI section. Medications Administered Current Inpatient Medications Aspirin (Ecotrin Ectab) 81 mg PO QAM CHERELLE Stop: 10/21/19 08:59 Atorvastatin Calcium (Lipitor) 80 mg PO HS CHERELLE Stop: 10/20/19 20:59 Non-Formulary Medication (Coenzyme Q10 [Co Q-10]) 100 mg PO QAM CHERELLE Stop: 10/21/19 08:59 Ondansetron HCl (Zofran) 4 mg IV Q6H PRN PRN Reason: Nausea Stop: 10/20/19 15:52 PG Care Time/CCT Total # of Minutes Spent Total Time Spent with Patient: Total time spent is greater than 50% in coordination of care (as documented) at patient's floor/unit and/or counseling patient: Coding Level of Care Code 68994 Office/OBS Consult Lvl 4 Diagnoses Elevated troponin R79.89 Hypertrophic cardiomyopathy I42.2 Systolic anterior movement of mitral valve I34.8 Lightheadedness R42 CAD (coronary artery disease) I25.10
--- NOTE | 2019-09-20 17:33 | XCELERA ---
[id number] \\[email or web address]_[email or web address]\[id number]
[2019-09-20 17:57] LABS: Magnesium 2.2 mg/dl (1.8-2.4); Troponin I 0.347 ng/ml (0-0.045)
[2019-09-20] MEDS ORDERED: ATORVASTATIN 40 MG TAB PO SCH (21:00)
--- NOTE | 2019-09-20 22:32 | Electrocardiogram Report ---
Test Reason : Blood Pressure : / mmHG Vent. Rate : 057 BPM Atrial Rate : 057 BPM P-R Int : 188 ms QRS Dur : 118 ms QT Int : 458 ms P-R-T Axes : 016 -18 144 degrees QTc Int : 445 ms Sinus bradycardia Left ventricular hypertrophy with QRS widening and repolarization abnormality Abnormal ECG When compared with ECG of 04-MAY-2009 10:18, Incomplete right bundle branch block is no longer Present Confirmed by Pankaj Chowdhury ([id number]) on 09/20/2019 10:32:37 PM Referred By: REFERRED SELF Confirmed By:Pankaj Chowdhury
[2019-09-21] MEDS ORDERED: NON-FORMULARY MEDICATION (Coenzyme Q10 [Co Q-10] 100 MG) PO SCH (09:00)
[2019-09-21] MEDS ORDERED: ASPIRIN 81 MG ECTAB PO SCH (09:00)
--- NOTE | 2019-09-21 20:10 | Discharge Summary ---
Date of Service September 20, 2019 Admission HPI Per Admitting Provider Patient is a pleasant 63yo C male with history of hypertrophic cardiomyopathy, follows predominantly with Cardiology at the [facility] in [place], [place]. He presents today with his complaining of 10 days of indigestion and eructation as well as lightheadedness and dyspnea with exertion, occasional palpitations. He denies chest pain or pressure, SOB, edema, orthopnea. He was ill with a URI a few months ago and continues to have a dry cough with some post nasal drip. Otherwise, no complaints. ER Course: ASA 324mg, Tylenol 650mg, Zofran 4mgIV, Nitro 0.4mg Admission Exam (Per Admitting) Constitutional General: patient resting comfortably, NAD, non-toxic in appearance, AA&O x 4 Skin: warm, dry, intact, no rashes or lesions HEENT: NC/AT, PERRL, EOMI, anicteric sclera, conjunctiva without injection, external ear normal to inspection and nontender, nares patent, moist mucus membranes, dentition intact, no oropharyngeal lesions, neck supple, trachea midline, no LAD, no thyromegaly, no JVD Heart: +S1/S2, regular, bradycardic, no m/r/g Lungs: equal air entry bilaterally, no rales/rhonchi/wheezes Abd: +BS, soft, NT/ND, no masses/organomegaly/ascites Ext: warm, 2+ pulses in UE/LE bilaterally, no clubbing/cyanosis or edema Neuro: nonfocal, patient AA&O x 4, speech intact, no facial droop, moving all extremities on command with equal strength 5/5 Specialty Data Hospitalist XR chest 1V portable HISTORY: Atypical Chest Pain COMPARISON: Chest 08/17/2014. FINDINGS: Stable calcified granuloma within the left lung base. Otherwise, lungs are clear. Cervical spinal fusion hardware is noted. No pleural effusions. No pneumothorax. The cardiac silhouette is borderline enlarged. IMPRESSION: Borderline enlargement of the cardiac silhouette. Otherwise, no acute process within the chest. ACT 112: Negative or not required by law. Electronically signed by: Everette Marroquin M.D. 09/20/2019 12:22 PM Dictated: 09/20/19 1220 Transcribed: 09/20/19 1220 Cardiology EKG: Sinus bradycardia Left ventricular hypertrophy with QRS widening and repolarization abnormality Abnormal ECG When compared with ECG of 04-MAY-2009 10:18, Incomplete right bundle branch block is no longer Present Confirmed by Pankaj Chowdhury ([id number]) on 09/20/2019 10:32:37 PM ECHOCARDIOGRAM: 1. Mildly dilated left ventricle with normal systolic function. EF 60-65%. No regional WMA. Sevefre asymmetric hypertrophy involving the basal anteroseptum (approximately 2.5 cm) with otherwise moderate concentric LVH 2. Moderate left atrial dilation 3. Systolic anterior motion of mitral leaflet without significant obstruction 4. Mild mitral regurgitation 5. Technically difficult study, enhanced wtih IV Definity 6. No prior study available for comparison Discharge Data Consultations 09/20/19 13:23 ED Decision to Admit Stat 09/20/19 15:53 Consult Cardiology Routine Hospital Course (1) Exertional dyspnea: 63yo C male with history of hypertrophic cardiomyopathy presenting with 10 days of exertional lightheadedness and dyspnea. No CP. No symptoms occurring at rest. Presently afebrile, hemodynamically stable with a resting bradycardia. Troponin x 1 elevated at 0.385, EKG with no evidence of acute ischemia. He reports having a cardiac catheterization performed in [place] last year - states he had 40% stenosis of LAD. He reports this is unchanged from a catheterization performed 13 years prior. -Patient was observed with telemetry -Troponin 0.385 --> 0.347 -Echocardiogram performed, results as above. No obstruction noted on echocardiogram. -Continue ASA 81mg po daily -Continue Atorvastatin 80mg po daily + Coq10 -Hold Lisinopril until you followup with your Knit Goods Mender -No Beta evelyne due to resting bradycardia -Nitroglycerine PRN chest pain -Zofran as needed for nausea (2) Elevated troponin: Troponin = 0.385 --> 0.347. Uncertain baseline values -Plan as above (3) Cardiomyopathy: Patient with history of hypertrophic cardiomyopathy. Echocardiogram performed today, results as above. Demonstrated severe asymmetric hypertrophy involving the basal anteroseptum, appx 2.5cm. Systolic anterior motion of the mitral leaflet present, no significant obstruction noted on resting echo. He receives his cardiac care in [place] at the [facility]. -Recommended holding Lisinopril until he follows with his Knit Goods Mender in [place] -Restriction on strenuous activity until he follows up with his Knit Goods Mender in [place] -Recommend followup with Cardiology in the next week Coding Level of Care Code 84748 [facility] Care - Discharge Diagnoses Exertional dyspnea R06.09 Elevated troponin R79.89 Cardiomyopathy I42.8 Cardiomyopathy type: other Time Spent (min) 30
== END 2019-09-20 18:25 | disposition home health service (06) ==
LOC: 2N 11:06 → ED 11:06 → 2N 14:44